=== PATIENT | female | born 1985 | race Caucasian/White ===

== ENCOUNTER 2017-12-19 19:25 | Emergency (ER) | payer OTHER ==
[2017-12-19] MEDS ORDERED: ONDANSETRON ODT 8 MG TAB SL ONE (19:46)
[2017-12-19] MEDS ORDERED: ALUM & MAG HYDROX-SIMETHICONE 30 ML, LIDOCAINE VISCOUS 2% 15 ML PO ONE ×2 (19:46)
[2017-12-19] MEDS ORDERED: LIDOCAINE HCL 2% (MOUTH-THROAT) 15 ML UD ONE (19:49)
[2017-12-19] MEDS ORDERED: ALUM & MAG HYDROX-SIMETHICONE 30 ML UD ONE (19:49)
--- NOTE | 2017-12-19 20:24 | RAD ---
PROCEDURE: Abdomen Series HISTORY: epigastric pain nv COMPARISON: None . TECHNIQUE: Two views of the abdomen and pelvis and 1 view of the chest, all projections in the frontal projection. FINDINGS: There are no discrete airspace infiltrates, pneumothoraces or pleural effusions. The pulmonary vascularity is normal. The cardiomediastinal silhouette is within normal limits, for patient's age and sex. The bowel gas pattern does not show any evidence of obstruction, ileus, or bowel wall thickening. There is no gross evidence of free air in the abdomen or the pelvis. There is no visualization of radiopaque calculi in the outline of the urinary tract. There is no significant constipation . IMPRESSION: There are no acute findings in the chest, abdomen and pelvis Location of Interpretation: [id number] Electronically signed by: Alejandro Manriquez MD 12/19/2017 8:22 PM CDT Workstation: [id number]
[2017-12-19] MEDS ORDERED: SUCRALFATE 1 GM/10 ML 1 GM UD PO ONE (20:36)
[2017-12-19] MEDS ORDERED: PANTOPRAZOLE SODIUM TAB 40 MG PO ONE (20:36)
[2017-12-19] MEDS ORDERED: SODIUM CHLORIDE 0.9% 1000ML 1,000 ML IVS ONE (20:38)
--- NOTE | 2017-12-19 20:40 | ED.PDOC ---
History of Present Illness - General Chief Complaint: Abdominal Pain Stated Complaint: Upper abd pain x 2 weeks Time Seen by Provider: 12/19/17 19:43 Source: patient Exam Limitations: no limitations - History of Present Illness Initial Comments: the patient is a 32-year-old female presenting to the emergency room secondary to a couple of months progressive symptoms particularly worse over the last 2 weeks. She's had increasing epigastric pain with increasing intermittent nausea and vomiting. No blood no bile. No right upper quadrant pain. No history of any pancreatitis. No recent medication changes. No syncope or near-syncope. No chest pain. Severity: moderate Improving Factors: nothing Worsening Factors: eating Associated Symptoms: nausea/vomiting Allergies/Adverse Reactions: Allergies NO KNOWN ALLERGY Allergy (Verified 12/19/17 20:34) Home Medications: Ambulatory Orders Famotidine [Pepcid Tab] 20 mg PO BID #60 tab 12/19/17 Ondansetron [Zofran Odt] 4 mg PO Q4H PRN #10 tab 12/19/17 Sucralfate Tab [Carafate Tab] 1 gm PO QID #120 tab 12/19/17 Review of Systems - Review of Systems Constitutional: States: no symptoms reported EENTM: States: no symptoms reported Respiratory: States: no symptoms reported Cardiology: States: no symptoms reported Gastrointestinal/Abdominal: States: abdominal pain, nausea, vomiting Musculoskeletal: States: no symptoms reported Skin: States: no symptoms reported Neurological: States: no symptoms reported Endocrine: States: no symptoms reported All other Systems: No Change from Baseline Past Medical History (General) - Patient Medical History Hx Asthma: No Hx Congestive Heart Failure: No Hx Thyroid Disease: No Hx Diabetes: No Hx Gastroesophageal Reflux: No Surgical History: other - Vaccination History Hx Tetanus, Diphtheria Vaccination: Yes Hx Influenza Vaccination: No Hx Pneumococcal Vaccination: Yes - Social History Hx Tobacco Use: Yes Hx Alcohol Use: Yes Feels Threatened In Home Enviroment: No Feels Threatened In a Relationship: No - Female History Patient is a Female of Child Bearing Age (10 -59 yrs old): No Patient : No Family Medical History - Family History Father Living Status: Still Living Hx Family;Other: hx Seizures Physical Exam - Physical Exam General Appearance: Alert, Comfortable, No apparent distress Eye Exam: bilateral normal Ears, Nose, Throat: hearing grossly normal, normal ENT inspection, normal pharynx Neck: full range of motion, supple Respiratory: lungs clear, normal breath sounds, no respiratory distress, no accessory muscle use Cardiovascular/Chest: normal peripheral pulses, regular rate, rhythm, no edema Peripheral Pulses: radial,right: 2+, radial,left: 2+, dorsalis pedis,right: 2+, dorsalis pedis,left: 2+ Gastrointestinal/Abdominal: soft, other - see history of present illness. No palpable mass. 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 Laboratory work and x-ray appear reassuring. She is mildly dehydrated. She is receiving a liter of IV fluids. I believe she simply has a gastritis or duodenitis. The patient is going to be placed on Pepcid and Carafate for the next month. She'll be written for Zofran for as needed use for any nausea and vomiting. She is to keep herself hydrated. She needs to eat small frequent meals and non-spicy meals. She does have an elevated MCV on her blood work. She does need to see her primary care doctor in the near future and be tested for any B12 deficiency. ER warnings were given for any worsening. follow-up primary care doctor in 1-2 weeks or sooner if indicated. - Results/Orders Results/Orders: acute abdominal series shows no significant pathology. Laboratory Results - last 24 hr 12/19/17 12/19/17 12/19/17 19:47 20:05 20:05 WBC 6.3 RBC 3.99 L Hgb 14.2 Hct 40.9 MCV 102.6 H MCH 35.5 H MCHC 34.8 RDW 12.6 Plt Count 248 MPV 8.7 Absolute Neuts (auto) 3.30 Absolute Lymphs (auto) 2.40 Absolute Monos (auto) 0.40 Absolute Eos (auto) 0.20 Absolute Basos (auto) 0.00 Neutrophils % 52.0 Lymphocytes % 37.9 Monocytes % 6.4 Eosinophils % 3.0 Basophils % 0.7 Sodium 140 Potassium 3.9 Chloride 106 Carbon Dioxide 27 Anion Gap 10.9 L BUN 8 Creatinine 0.53 L BUN/Creatinine Ratio 15.1 Random Glucose 97 Serum Osmolality 277.6 Lactic Acid 1.2 Calcium 9.3 Magnesium 2.0 Total Bilirubin 0.4 AST 22 ALT 27 Alkaline Phosphatase 59 Serum Total Protein 6.8 Albumin 3.9 Globulin 2.9 Albumin/Globulin Ratio 1.3 Amylase 31 Lipase 33 Serum HCG, Qual Urine Color Urine Appearance Urine pH Ur Specific [place] Urine Protein Urine Glucose (UA) Urine Ketones Urine Blood Urine Nitrite Urine Bilirubin Urine Urobilinogen Ur Leukocyte Esterase Urine RBC Urine WBC Ur Epithelial Cells Urine Bacteria Urine Mucus 12/19/17 12/19/17 20:05 20:05 WBC RBC Hgb Hct MCV MCH MCHC RDW Plt Count MPV Absolute Neuts (auto) Absolute Lymphs (auto) Absolute Monos (auto) Absolute Eos (auto) Absolute Basos (auto) Neutrophils % Lymphocytes % Monocytes % Eosinophils % Basophils % Sodium Potassium Chloride Carbon Dioxide Anion Gap BUN Creatinine BUN/Creatinine Ratio Random Glucose Serum Osmolality Lactic Acid Calcium Magnesium Total Bilirubin AST ALT Alkaline Phosphatase Serum Total Protein Albumin Globulin Albumin/Globulin Ratio Amylase Lipase Serum HCG, Qual Negative Urine Color Yellow Urine Appearance Clear Urine pH 6.0 Ur Specific [place] >= 1.030 Urine Protein Negative Urine Glucose (UA) Negative Urine Ketones Negative Urine Blood Negative Urine Nitrite Negative Urine Bilirubin Negative Urine Urobilinogen 0.2 Ur Leukocyte Esterase Negative Urine RBC 1-3 Urine WBC 0-1 Ur Epithelial Cells 30-40 Urine Bacteria 2+ H Urine Mucus Trace Departure - Departure Clinical Impression: Mild dehydration, Elevated MCV Gastritis Qualifiers: Gastritis type: unspecified gastritis Chronicity: acute Gastritis bleeding: without bleeding Qualified Code(s): K29.00 - Acute gastritis without bleeding Disposition: Discharge to Home or Self Care Condition: Fair Departure Forms: ED Discharge - Pt. Copy, Patient Portal Self Enrollment Diet: bland diet Activity: increase activity as tolerated Referrals: Radha Campos NP [Primary Care Provider] - 1-2 Weeks Prescriptions: Famotidine [Pepcid Tab] 20 mg PO BID #60 tab Ondansetron [Zofran Odt] 4 mg PO Q4H PRN #10 tab PRN Reason: Vomiting Sucralfate Tab [Carafate Tab] 1 gm PO QID #120 tab Home Medications: Ambulatory Orders Famotidine [Pepcid Tab] 20 mg PO BID #60 tab 12/19/17 Ondansetron [Zofran Odt] 4 mg PO Q4H PRN #10 tab 12/19/17 Sucralfate Tab [Carafate Tab] 1 gm PO QID #120 tab 12/19/17 Additional Instructions: the patient's 32-year-old female with a progressive course for abdominal epigastric pain and nausea and vomiting. Laboratory work and x-ray appear reassuring. She is mildly dehydrated. She is receiving a liter of IV fluids. I believe she simply has a gastritis or duodenitis. The patient is going to be placed on Pepcid and Carafate for the next month. She'll be written for Zofran for as needed use for any nausea and vomiting. She is to keep herself hydrated. She needs to eat small frequent meals and non-spicy meals. She does have an elevated MCV on her blood work. She does need to see her primary care doctor in the near future and be tested for any B12 deficiency. ER warnings were given for any worsening. follow-up primary care doctor in 1-2 weeks or sooner if indicated.
[2017-12-19 21:28] VITALS: BP 138/72; TEMP 98.2; O2SAT 98
== END 2017-12-19 21:28 | disposition home or self-care (01) ==
LOC: ER 19:25
DX: K29.00 Acute gastritis without bleeding (principal); E86.0 Dehydration; R79.89 Other specified abnormal findings of blood chemistry; Z87.891 Personal history of nicotine dependence
CPT/HCPCS: 36415; 74019; 80053; 81001; 82150; 83605; 83690; 83735; 84703; 85025; J7030